=== PATIENT | female | born 1965 | race American Indian/Alaskan Native ===

== ENCOUNTER 2017-01-03 23:17 | Emergency (ER) | payer MEDICAID ==
[2017-01-03 23:17] VITALS: BMI 31.6
[2017-01-04] MEDS ORDERED: Sodium Chloride 0.9% 1,000 ML IV ONE (00:06)
[2017-01-04] MEDS ORDERED: Albuterol-Ipratrop 3 mg / 0.5 (3 ml) UD INH STA ×3 (00:07→01:37)
[2017-01-04] MEDS ORDERED: Sodium Chloride 0.9% 1,000 ML ONE (00:14)
[2017-01-04] MEDS ORDERED: Albuterol-Ipratrop 3 mg / 0.5 (3 ml) UD ONE ×3 (00:26→01:47)
[2017-01-04 00:50] LABS: BASO % 0.4 % (0.0-2.0); EOS # 0.2 K/uL (0.0-0.7); EOS % 3.8 % (0.0-4.0); HEMATOCRIT 41.9 % (34.0-47.0); LYMPH # 1.5 K/uL (1.0-4.3); LYMPH % 25.2 % (20.0-40.0); MEAN CELL VOLUME 82.6 fL (81.0-99.0); MEAN CORPUSCULAR HEMOGLOBIN 26.6 pg (27.0-31.0); MEAN CORPUSCULAR HGB CONC 32.2 g/dL (33.0-37.0); MEAN PLATELET VOLUME 8.9 fL (7.2-11.7); MONO # 0.5 K/uL (0.0-0.8); MONO % 8.8 % (0.0-10.0); NRBC % 0.1 % (0.0-2.0); RED CELL DISTRIBUTION WIDTH 15.6 % (11.5-14.5); WHITE BLOOD COUNT 6.1 K/uL (4.8-10.8)
[2017-01-04 01:02] LABS: POTASSIUM 4.3 mmol/L (3.6-5.2)
[2017-01-04 01:04] LABS: BILIRUBIN,TOTAL 0.9 mg/dL (0.2-1.3)
[2017-01-04 01:05] LABS: ALB/GLOB RATIO 1.2 (1.0-2.1)
[2017-01-04 01:06] LABS: CALCIUM 9.3 mg/dl (8.6-10.4)
[2017-01-04 01:16] LABS: TROPONIN I 0.013 ng/mL (0.00-0.120)
[2017-01-04 01:22] LABS: RBC URINE 2 /hpf (0-3); URINE BACTERIA RARE (<OCC); URINE BILIRUBIN NEGATIVE (NEGATIVE); URINE BLOOD NEGATIVE (NEGATIVE); URINE COLOR Yellow (YELLOW); URINE GLUCOSE (UA) NORMAL (Normal); URINE KETONE NEGATIVE (NEGATIVE); URINE LEUKOCYTE ESTERASE TRACE Leu/uL (Negative); URINE PROTEIN 1+ mg/dL (NEGATIVE); URINE UROBILINOGEN NORMAL mg/dL (0.2-1.0); WBC URINE 8 /hpf (0-5)
--- NOTE | 2017-01-04 01:25 | C.PDOC ---
History Of Present Illness 51 year old patient, with a past medical history of asthma, is brought in by ambulance to the ED complaining of dry, non-productive cough for the past 3 days. Patient denies fever, chest pain, vomiting, or any other complaints. Time Seen by Provider: 01/04/17 00:00 Chief Complaint (Nursing): Chest Pain History Per: Patient History/Exam Limitations: no limitations Onset/Duration Of Symptoms: Days (3) Current Symptoms Are (Timing): Still Present Context: Other Severity: Mild Pain Scale Rating Of: 3 Quality: "Pain" Alleviating Factors: None Recent travel outside of the [place]: No Past Medical History Reviewed: Historical Data, Nursing Documentation, Vital Signs Vital Signs: Last Vital Signs Temp 98.2 F 01/04/17 02:18 Pulse 84 01/04/17 02:18 Resp 12 01/04/17 02:18 BP 161/94 H 01/04/17 02:18 Pulse Ox 100 01/04/17 02:18 - Medical History PMH: Asthma, Cardia Arrhythmia, Gall Bladder Disease (GALLSTONES), HIV, HTN, Hypercholesterolemia Surgical History: Cholecystectomy Family History: States: Unknown Family Hx - Social History Hx Tobacco Use: Yes Hx Alcohol Use: Yes Hx Substance Use: Yes - Immunization History Hx Tetanus Toxoid Vaccination: No Hx Influenza Vaccination: Yes Hx Pneumococcal Vaccination: No Review Of Systems Except As Marked, All Systems Reviewed And Found Negative. Constitutional: Negative for: Fever Cardiovascular: Negative for: Chest Pain Respiratory: Positive for: Cough Gastrointestinal: Negative for: Vomiting Physical Exam - Physical Exam Appears: Non-toxic, Other (mild distress) Skin: Warm, Dry Head: Atraumatic, Normacephalic Eye(s): bilateral: Normal Inspection, PERRL, EOMI Ear(s): Bilateral: Normal Nose: Normal Throat: Normal, No Erythema, No Exudate Neck: Normal ROM, Supple Chest: Symmetrical Cardiovascular: Rhythm Regular Respiratory: No Accessory Muscle Use, No Rales, Rhonchi (scattered), Wheezing ( scattered) Gastrointestinal/Abdominal: Soft, No Tenderness, Other (obese) Back: Normal Inspection, No CVA Tenderness Extremity: Normal ROM Neurological/Psych: Oriented x3, Normal Speech, Normal Cognition ED Course And Treatment - Laboratory Results Result Diagrams: 01/04/17 00:47 01/04/17 00:47 Lab Interpretation: Normal ECG: Interpreted By Me ECG Rhythm: Sinus Rhythm ECG Interpretation: Normal Rate From EC (bpm) O2 Sat by Pulse Oximetry: 97 (RA) Pulse Ox Interpretation: Normal - Radiology CXR: Interpreted by Me CXR Interpretation: Yes: No Acute Disease Progress Note: Plan: EKG, Labs, chest x-ray, Duoneb, IV fluids, Prednisone Reevaluation Time: :24 Reassessment Condition: Improved Medical Decision Making Medical Decision Making: bronchitis, no pna Disposition Doctor Will See Patient In The: Office Counseled Patient/Family Regarding: Studies Performed, Diagnosis - Disposition Referrals: Sapna Arechiga MD [Medical Doctor] - Disposition: HOME/ ROUTINE Disposition Time: :24 Condition: GOOD Additional Instructions: take the meds as prescribed Add pepcid 20 mg @ night to prevent stomach irritation. Follow-up with your PMD as needed in 2-3 days. Prescriptions: Spacer, Inhalation [Aerochamber] 1 dev IH DAILY #1 dev Prednisone [Deltasone] 40 mg PO DAILY #8 tablet Albuterol HFA [Ventolin HFA 90 mcg/actuation (8 g)] 2 puff IH Q4H PRN #2 puff PRN Reason: Cough Instructions: Acute Bronchitis (ED) - Clinical Impression Clinical Impression: Bronchitis - Scribe Statement The provider has reviewed the documentation as recorded by the Scribe Antionette Coon Provider Attestation: All medical record entries made by the Scribe were at my direction and personally dictated by me. I have reviewed the chart and agree that the record accurately reflects my personal performance of the history, physical exam, medical decision making, and the department course for this patient. I have also personally directed, reviewed, and agree with the discharge instructions and disposition.
[2017-01-04 02:20] VITALS: BP 161/94; PULSE 84; RESP 12; TEMP 98.2
[2017-01-04 03:00] VITALS: O2SAT 97
--- NOTE | 2017-01-04 08:44 | RAD ---
HISTORY: cough, ? bronchitis vs pna COMPARISON: 10/03/2015 TECHNIQUE: Chest PA and lateral FINDINGS: LUNGS: No active pulmonary disease. PLEURA: No significant pleural effusion identified. No pneumothorax apparent. CARDIOVASCULAR: Normal. OSSEOUS STRUCTURES: No significant abnormalities. VISUALIZED UPPER ABDOMEN: Surgical clips in the upper abdomen. OTHER FINDINGS: None. IMPRESSION: No active disease.
--- NOTE | 2017-01-06 19:48 | CARD ---
APPROVED REPORT EKG Measurement Heart [id number] <Conclusion> Normal sinus rhythm Minimal voltage criteria for LVH, may be normal variant Nonspecific T wave abnormality Abnormal ECG
== END 2017-01-04 02:53 | disposition home or self-care (01) ==
LOC: C.ER 23:17
DX: J40 Bronchitis, not specified as acute or chronic (principal); Z87.891 Personal history of nicotine dependence
CPT/HCPCS: 71020; 80053; 80324; 80345; 80346; 80349; 80353; 80358; 80361; 81001; 83880; 83992; 84484; 85025; 96360; 99285; J7040

== ENCOUNTER 2017-03-19 02:44 | Emergency (ER) | payer MEDICAID ==
[2017-03-19 02:44] VITALS: BMI 31.6
[2017-03-19 03:00] VITALS: O2SAT 99
[2017-03-19] MEDS ORDERED: Albuterol-Ipratrop 3 mg / 0.5 (3 ml) UD ONE ×2 (03:09→04:40)
--- NOTE | 2017-03-19 03:17 | C.PDOC ---
Time Seen by Provider: 03/19/17 03:12 Chief Complaint (Nursing): Chest Pain Past Medical History Vital Signs: Last Vital Signs Temp 98.1 F 03/19/17 02:54 Pulse 84 03/19/17 02:54 Resp 18 03/19/17 03:03 BP 156/82 H 03/19/17 02:54 Pulse Ox 99 03/19/17 03:03 - Medical History PMH: Asthma, Cardia Arrhythmia, Gall Bladder Disease (GALLSTONES), HIV, HTN, Hypercholesterolemia Denies: Chronic Kidney Disease Surgical History: Cholecystectomy Family History: States: Unknown Family Hx - Social History Hx Tobacco Use: Yes Hx Alcohol Use: Yes Hx Substance Use: Yes - Immunization History Hx Tetanus Toxoid Vaccination: No Hx Influenza Vaccination: Yes Hx Pneumococcal Vaccination: No ED Course And Treatment ECG: Interpreted By Me, Viewed By Me ECG Rhythm: Sinus Rhythm (79), Nonspecific Changes O2 Sat by Pulse Oximetry: 99 Pulse Ox Interpretation: Normal
[2017-03-19] MEDS ORDERED: MethylPREDNISolone 40 mg Vial IVP STA (03:30)
--- NOTE | 2017-03-19 03:30 | C.PDOC ---
History Of Present Illness Patient presents to the ED with complaints of chest pain with cough and shortness of breath. Patient notes a history of asthma and feels congested/ Patient denies any fever, chills, nausea. or vomiting. Time Seen by Provider: 03/19/17 03:12 Chief Complaint (Nursing): Chest Pain History Per: Patient History/Exam Limitations: no limitations Onset/Duration Of Symptoms: Hrs Current Symptoms Are (Timing): Still Present Associated Symptoms: Cough, Chest Pain. denies: Fever, Hives, Itching Preciptating Factors: Ran Out Of Meds Severity: Moderate Pain Scale Rating Of: 4 Recent travel outside of the [place]: No Additional History Per: Family - Asthma History Medication Use: Daily Rescue Medications: See Home Medication List Control Medications: See Home Medication List Past Medical History Reviewed: Historical Data, Nursing Documentation, Vital Signs Vital Signs: Last Vital Signs Temp 98.1 F 03/19/17 02:54 Pulse 84 03/19/17 02:54 Resp 18 03/19/17 03:03 BP 156/82 H 03/19/17 02:54 Pulse Ox 99 03/19/17 03:36 - Medical History PMH: Asthma, Cardia Arrhythmia, Gall Bladder Disease (GALLSTONES), HIV, HTN, Hypercholesterolemia Surgical History: Cholecystectomy Family History: States: Unknown Family Hx - Social History Hx Tobacco Use: Yes Hx Alcohol Use: Yes Hx Substance Use: Yes - Immunization History Hx Tetanus Toxoid Vaccination: No Hx Influenza Vaccination: Yes Hx Pneumococcal Vaccination: No Review Of Systems Constitutional: Negative for: Fever, Chills, Sweats ENT: Negative for: Throat Pain Cardiovascular: Positive for: Chest Pain (with cough only). Negative for: Palpitations Respiratory: Positive for: Cough, Shortness of Breath Gastrointestinal: Negative for: Nausea, Vomiting, Abdominal Pain, Diarrhea Genitourinary: Negative for: Dysuria Musculoskeletal: Negative for: Back Pain Skin: Negative for: Rash, Lesions, Jaundice Neurological: Negative for: Weakness Psych: Negative for: Anxiety Physical Exam - Physical Exam Appears: Non-toxic, No Acute Distress Skin: Warm, Dry Head: Normacephalic Eye(s): bilateral: Normal Inspection Oral Mucosa: Moist Neck: Supple Chest: Symmetrical, No Deformity Cardiovascular: Rhythm Regular Respiratory: No Rales, No Rhonchi, No Stridor, Wheezing (scattered diffuse wheezing ) Gastrointestinal/Abdominal: Soft, No Tenderness, No Distention, No Guarding, No Rebound Back: Normal Inspection Extremity: Normal ROM, No Tenderness Extremity: Bilateral: Atraumatic Neurological/Psych: Oriented x3, Normal Speech, Normal Cognition, Other ( patient is speaking in complete sentences ) Gait: Steady ED Course And Treatment - Laboratory Results Result Diagrams: 03/19/17 04:09 03/19/17 04:09 O2 Sat by Pulse Oximetry: 99 (room air ) Pulse Ox Interpretation: Normal - Radiology CXR: Interpreted by Me, Viewed By Me CXR Interpretation: Yes: Other (unchanged from 01/04/17). No: Infiltrates, Fracture, Pnemothorax Reevaluation Time: 04:52 Reassessment Condition: Improved Critical Care Time - Critical Care Note Total Time (in mins): 30 Documented critical care: time excludes all time spent performing seperately billable procedures. Disposition Counseled Patient/Family Regarding: Studies Performed, Diagnosis, Need For Followup - Disposition Referrals: Elsa Flower APN [Non-Staff] - Disposition: HOME/ ROUTINE Disposition Time: 03:30 Condition: FAIR Prescriptions: Albuterol/Ipratropium [Duoneb 3 MG/3 Ml-0.5 MG/3 Ml 3 Ml] 1 ea IH QID PRN #50 neb PRN Reason: Wheezing Prednisone [Deltasone] 20 mg PO DAILY #5 tablet Instructions: Asthma (DC) - Clinical Impression Clinical Impression: Asthma exacerbation - Scribe Statement The provider has reviewed the documentation as recorded by the Scribe Suzy Cole All medical record entries made by the Scribe were at my direction and personally dictated by me. I have reviewed the chart and agree that the record accurately reflects my personal performance of the history, physical exam, medical decision making, and the department course for this patient. I have also personally directed, reviewed, and agree with the discharge instructions and disposition.
[2017-03-19 04:12] LABS: BASO % 0.6 % (0.0-2.0); EOS # 0.6 K/uL (0.0-0.7); EOS % 8.8 % (0.0-4.0); HEMATOCRIT 40.9 % (34.0-47.0); LYMPH # 2.2 K/uL (1.0-4.3); LYMPH % 34.9 % (20.0-40.0); MEAN CELL VOLUME 81.9 fL (81.0-99.0); MEAN CORPUSCULAR HGB CONC 31.7 g/dL (33.0-37.0); MEAN PLATELET VOLUME 8.5 fL (7.2-11.7); MONO # 0.6 K/uL (0.0-0.8); MONO % 8.9 % (0.0-10.0); RED CELL DISTRIBUTION WIDTH 14.1 % (11.5-14.5); WHITE BLOOD COUNT 6.4 K/uL (4.8-10.8)
[2017-03-19 04:25] LABS: POTASSIUM 4.2 mmol/L (3.6-5.2)
[2017-03-19 04:28] LABS: ALB/GLOB RATIO 1.5 (1.0-2.1); BILIRUBIN,TOTAL 0.7 mg/dL (0.2-1.3); TOTAL PROTEIN 7.7 g/dL (6.3-8.3)
[2017-03-19] MEDS: Albuterol-Ipratrop 3 mg / 0.5 (3 ml) UD IH SCH ×2 (04:45→04:46)
[2017-03-19 05:07] VITALS: BP 149/81; PULSE 92; RESP 16; TEMP 98.7
--- NOTE | 2017-03-19 08:40 | RAD ---
PROCEDURE: CHEST RADIOGRAPH, 1 VIEW HISTORY: SOB COMPARISON: 01/04/2017 FINDINGS: LUNGS: Clear. PLEURA: No pneumothorax or pleural fluid seen. CARDIOVASCULAR: Normal. OSSEOUS STRUCTURES: No significant abnormalities. VISUALIZED UPPER ABDOMEN: Normal. OTHER FINDINGS: None. IMPRESSION: No active disease.
== END 2017-03-19 05:19 | disposition home or self-care (01) ==
LOC: C.ER 02:44
DX: J45.901 Unspecified asthma with (acute) exacerbation (principal); Z72.0 Tobacco use
CPT/HCPCS: 71010; 80053; 85025; 94150; 96374; 99285; J2920

== ENCOUNTER 2017-05-27 11:35 | Emergency (ER) | payer MEDICAID ==
[2017-05-27 11:35] VITALS: BMI 31.6
[2017-05-27 11:51] VITALS: RESP 16; O2SAT 100
--- NOTE | 2017-05-27 11:56 | C.PDOC ---
History Of Present Illness 51 y/o F c PMHx asthma p/w chest pain x 2 hours. Patient states that she sniffed heroin prior to the symptoms. She also reports cocaine use last night. She reports associated palpitations. She denies dyspnea, nausea, vomiting. Time Seen by Provider: 05/27/17 11:40 Chief Complaint (Nursing): Chest Pain Past Medical History Vital Signs: Last Vital Signs Temp 98.2 F 05/27/17 13:01 Pulse 88 05/27/17 13:01 Resp 16 05/27/17 13:01 BP 168/92 H 05/27/17 13:01 Pulse Ox 100 05/27/17 13:01 - Medical History PMH: Asthma, Cardia Arrhythmia, Gall Bladder Disease (GALLSTONES), HIV, HTN, Hypercholesterolemia Denies: Chronic Kidney Disease Surgical History: Cholecystectomy Family History: States: Unknown Family Hx - Social History Hx Tobacco Use: Yes Hx Alcohol Use: Yes Hx Substance Use: Yes - Immunization History Hx Tetanus Toxoid Vaccination: No Hx Influenza Vaccination: Yes Hx Pneumococcal Vaccination: No Review Of Systems Except As Marked, All Systems Reviewed And Found Negative. Constitutional: Negative for: Fever Respiratory: Negative for: Shortness of Breath Physical Exam - Physical Exam Additional Physical Exam Comments: Constitutional: No acute distress. Head: Normocephalic. Atraumatic. Eyes: PERRL. ENT: Moist mucous membranes. Neck: Supple. Cardiovascular: Regular rate. Radial pulse 2+ bilaterally. Chest: No tenderness. Respiratory: Clear to auscultation bilaterally. GI: Soft. Back: No CVA tenderness. Musculoskeletal: No tenderness or swelling of extremities. Skin: No rash. Neurologic: Alert, no focal deficit. ED Course And Treatment - Laboratory Results Result Diagrams: 05/27/17 12:18 05/27/17 12:18 O2 Sat by Pulse Oximetry: 100 Medical Decision Making Medical Decision Making: EKG NSR 80 bpm, no ST/T wave changes. Will check 1 set of cardiac enzymes due to cocaine use last night. Aspirin administered en route. Otherwise, patient in no acute distress, normal HR. Patient in no distress during ER stay. Will discharge home, counseled on illicit drug use. Disposition - Disposition Disposition: HOME/ ROUTINE Disposition Time: 12:55 Condition: STABLE Instructions: Polysubstance Abuse (ED) Forms: [email or web address] (Mongolian) - Clinical Impression Clinical Impression: Chest pain
[2017-05-27 12:24] LABS: BASO % 0.6 % (0.0-2.0); EOS # 0.1 K/uL (0.0-0.7); EOS % 0.9 % (0.0-4.0); HEMATOCRIT 43.8 % (34.0-47.0); LYMPH % 14.2 % (20.0-40.0); MEAN CELL VOLUME 81.9 fL (81.0-99.0); MEAN CORPUSCULAR HEMOGLOBIN 26.4 pg (27.0-31.0); MEAN CORPUSCULAR HGB CONC 32.2 g/dL (33.0-37.0); MEAN PLATELET VOLUME 8.7 fL (7.2-11.7); MONO # 0.5 K/uL (0.0-0.8); MONO % 6.7 % (0.0-10.0); NRBC % 0.2 % (0.0-2.0); WHITE BLOOD COUNT 6.8 K/uL (4.8-10.8)
[2017-05-27 12:31] LABS: CHLORIDE 99 mmol/L (98-107); POTASSIUM 3.5 mmol/L (3.6-5.2); SODIUM 142 mmol/L (132-148)
[2017-05-27 12:33] LABS: GFR AFRICAN-AMERICAN 41
[2017-05-27 12:34] LABS: ALB/GLOB RATIO 1.1 (1.0-2.1); ALKALINE PHOSPHATASE 105 U/L (38-126); AST/SGOT 28 U/L (14-36); BLOOD UREA NITROGEN 14 mg/dL (7-17); CARBON DIOXIDE 25 mmol/L (22-30); TOTAL PROTEIN 8.3 g/dL (6.3-8.3)
[2017-05-27 12:35] LABS: ALT/SGPT 26 U/L (9-52); CALCIUM 9.9 mg/dl (8.6-10.4); GLUCOSE,RANDOM 90 mg/dL (65-105)
--- NOTE | 2017-05-27 12:36 | RAD ---
HISTORY: cp COMPARISON: Chest x-ray performed 03/19/17 TECHNIQUE: Chest, one view. FINDINGS: Examination limited by habitus. LUNGS: No focal consolidation. Please note that chest x-ray has limited sensitivity for the detection of pulmonary masses. PLEURA: No significant pleural effusion identified. No definite pneumothorax . CARDIOVASCULAR: The cardiomediastinal silhouette appears within normal limits of size. OSSEOUS STRUCTURES: No acute osseous abnormality identified. VISUALIZED UPPER ABDOMEN: Unremarkable. OTHER FINDINGS: None. IMPRESSION: No focal consolidation, significant pleural effusion, or definite pneumothorax identified.
[2017-05-27 13:01] VITALS: BP 168/92; PULSE 88; TEMP 98.2
--- NOTE | 2017-05-30 23:59 | CARD ---
APPROVED REPORT EKG Measurement Heart [id number] <Conclusion> Normal sinus rhythm Minimal voltage criteria for LVH, may be normal variant Borderline ECG
== END 2017-05-27 13:08 | disposition home or self-care (01) ==
LOC: C.ER 11:35
DX: R07.9 Chest pain, unspecified (principal); F14.10 Cocaine abuse, uncomplicated

== ENCOUNTER 2018-07-04 09:50 | Inpatient (IN) | payer MEDICAID ==
[2018-07-04] MEDS ORDERED: Aspirin 325 mg EC Tablets PO STA (10:14)
[2018-07-04] MEDS ORDERED: Nitroglycerin 50mg in D5W 50 MG/250 ML BOTTLE IV SCH (10:15)
[2018-07-04] MEDS ORDERED: Nitroglycerin 50mg in D5W 50 MG/250 ML BOTTLE IV ONE (10:24)
[2018-07-04 10:29] LABS: BASO % 0.3 % (0.0-2.0); EOS % 0.7 % (0.0-4.0); HEMOGLOBIN 11.8 g/dL (11.0-16.0); LYMPH # 1.5 K/uL (1.0-4.3); LYMPH % 28.6 % (20.0-40.0); MEAN CORPUSCULAR HEMOGLOBIN 24.7 pg (27.0-31.0); MEAN CORPUSCULAR HGB CONC 32.8 g/dL (33.0-37.0); MEAN PLATELET VOLUME 7.9 fL (7.2-11.7); MONO # 0.4 K/uL (0.0-0.8); MONO % 7.2 % (0.0-10.0); NEUT # 3.4 K/uL (1.8-7.0); NEUT % 63.2 % (50.0-75.0); NRBC % 0.1 % (0.0-2.0); RBC 4.79 Mil/uL (3.80-5.20); RED CELL DISTRIBUTION WIDTH 16.1 % (11.5-14.5); WHITE BLOOD COUNT 5.3 K/uL (4.8-10.8)
[2018-07-04 10:30] LABS: MEAN CELL VOLUME 75.4 fL (81.0-99.0)
[2018-07-04 10:36] LABS: INR 1.1; PROTHROMBIN TIME 11.5 SECONDS (9.7-12.2)
[2018-07-04 10:42] LABS: ALB/GLOB RATIO 0.8 (1.0-2.1); ALBUMIN 4.5 g/dL (3.5-5.0); CALCIUM 10.6 mg/dl (8.6-10.4)
[2018-07-04 10:52] LABS: TROPONIN I 0.088 ng/mL (0.00-0.120)
--- NOTE | 2018-07-04 11:20 | RAD ---
Date of service: 07/04/2018 PROCEDURE: CHEST RADIOGRAPH, 1 VIEW HISTORY: SOB COMPARISON: 05/27/2017 FINDINGS: LUNGS: Clear. PLEURA: No pneumothorax or pleural fluid seen. CARDIOVASCULAR: No radiographic findings to suggest acute or significant cardiovascular disease. OSSEOUS STRUCTURES: No significant abnormalities. VISUALIZED UPPER ABDOMEN: Normal. OTHER FINDINGS: None. IMPRESSION: No active disease. No acute/significant interval changes.
[2018-07-04] MEDS ORDERED: Albuterol HFA 90 mcg/actuation (8 g) IH PRN (12:00)
[2018-07-04] MEDS ORDERED: Albuterol-Ipratrop 3 mg / 0.5 (3 ml) UD IH PRN (12:53)
--- NOTE | 2018-07-04 16:01 | C.PDOC ---
History Of Present Illness 53 y/o female,w/PMhx of HTN, brought to ER by ALS for evaluation chest pain which began after she was snorting cocaine today. EMS was phoned and patient was transported to the ER. Upon arrival, patient is complaining of chest pain. Dianne hathaway describes the pain as tightness. She notes that she has associated SOB. Time Seen by Provider: 07/04/18 10:03 Chief Complaint (Nursing): Chest Pain History Per: Patient History/Exam Limitations: no limitations Onset/Duration Of Symptoms: Hrs Current Symptoms Are (Timing): Still Present Severity: Moderate Past Medical History Reviewed: Historical Data, Nursing Documentation, Vital Signs Vital Signs: Last Vital Signs Temp 98.2 F 07/04/18 16:05 Pulse 76 07/04/18 16:05 Resp 20 07/04/18 16:05 BP 149/70 07/04/18 16:05 Pulse Ox 98 07/04/18 16:14 - Medical History PMH: Asthma, Cardia Arrhythmia, Gall Bladder Disease (GALLSTONES), HIV, HTN, Hypercholesterolemia Denies: Chronic Kidney Disease Surgical History: Cholecystectomy Family History: States: No Known Family Hx - Social History Hx Tobacco Use: Yes Hx Alcohol Use: Yes Hx Substance Use: Yes - Immunization History Hx Tetanus Toxoid Vaccination: No Hx Influenza Vaccination: Yes Hx Pneumococcal Vaccination: No Review Of Systems Except As Marked, All Systems Reviewed And Found Negative. Constitutional: Negative for: Fever, Chills Cardiovascular: Positive for: Chest Pain Respiratory: Positive for: Shortness of Breath. Negative for: Cough Physical Exam - Physical Exam Appears: Non-toxic, No Acute Distress Skin: Normal Color, Warm, Dry Head: Atraumatic, Normacephalic Eye(s): bilateral: Normal Inspection Nose: Normal Oral Mucosa: Moist Neck: Supple Chest: Symmetrical Cardiovascular: Rhythm Regular Respiratory: Normal Breath Sounds, No Rales, No Rhonchi, No Wheezing Gastrointestinal/Abdominal: Normal Exam, Soft, No Tenderness, No Guarding, No Rebound Neurological/Psych: Oriented x3, Normal Speech ED Course And Treatment - Laboratory Results Result Diagrams: 07/04/18 10:21 07/04/18 10:21 ECG: Interpreted By Me, Viewed By Me ECG Rhythm: Sinus Tachycardia Interpretation Of ECG: Sinus Tachycardia with normal intervals, normal axises, poor R wave progression, ST elevations in Leads V2-V6, T wave inversions in Lead III Rate From EC O2 Sat by Pulse Oximetry: 98 (RA) Pulse Ox Interpretation: Normal - Other Rad CXR X-Ray: Viewed By Me, Read By Radiologist Interpretation: Date of service: 07/04/2018. PROCEDURE: CHEST RADIOGRAPH, 1 VIEW. HISTORY: SOB. COMPARISON: 05/27/2017. FINDINGS: LUNGS: Clear. PLEURA: No pneumothorax or pleural fluid seen. CARDIOVASCULAR: No radiographic findings to suggest acute or significant cardiovascular disease. OSSEOUS STRUCTURES: No significant abnormalities. VISUALIZED UPPER ABDOMEN: N ormal. OTHER FINDINGS: None. IMPRESSION: No active disease. No acute/significant interval changes. Medical Decision Making Medical Decision Making: Assessment: Chest Pain Plan: --Labs --CXR --Aspirin PO Updates: 10:13 AM Case discussed with Dr. Ramirez, unit leader. I sent a copy to Dr. Ramirez, he noted it is not a STEMI, it is vasospasm. There will be no code heart. CXR was compared to CXR on 05/27/17. There are no changes. 11: 27 AM Patient admitted to Tele Obs under for chest pain. Disposition Discussed With : Andreas Ignacio Doctor Will See Patient In The: Hospital Counseled Patient/Family Regarding: Studies Performed, Diagnosis - Disposition Disposition: HOSPITALIZED Disposition Time: 11:27 Condition: FAIR - Clinical Impression Clinical Impression: Chest pain - Scribe Statement The provider has reviewed the documentation as recorded by the Mika Carlisle Provider Attestation: All medical record entries made by the Daveibe were at my direction and personally dictated by me. I have reviewed the chart and agree that the record accurately reflects my personal performance of the history, physical exam, medical decision making, and the department course for this patient. I have also personally directed, reviewed, and agree with the discharge instructions and disposition.
[2018-07-04 16:06] VITALS: RESP 20
[2018-07-04 18:01] LABS: CK-MB 8.72 ng/mL (0.0-3.38); TROPONIN I 2.66 ng/mL (0.00-0.120)
[2018-07-04 23:15] LABS: CK-MB 13.1 ng/mL (0.0-3.38); TROPONIN I 5.9 ng/mL (0.00-0.120)
[2018-07-04] MEDS ORDERED: Heparin25000 units/250ml 1/2NS 25,000 UNITS/250 ML BAG IV PRN (23:48)
[2018-07-05 05:09] LABS: CK-MB 12.9 ng/mL (0.0-3.38); TROPONIN I 6.82 ng/mL (0.00-0.120)
[2018-07-05] MEDS ORDERED: Fluticasone Nasal 50 mcg/Spray NS SCH (08:00)
[2018-07-05] MEDS ORDERED: RILPIVIRINE HCL 25 MG PO SCH (10:00)
[2018-07-05] MEDS ORDERED: Lidocaine PF 2% (5 ml) Inj (For Cardiac Arrhy) ONE (11:18)
[2018-07-05] MEDS ORDERED: Midazolam 2 MG/2 ML VIAL ONE ×3 (11:21→11:45)
[2018-07-05] MEDS ORDERED: Verapamil 2 ML ONE (11:25)
[2018-07-05] MEDS ORDERED: Nitroglycerin 50mg in D5W 50 MG/250 ML BOTTLE IV ONE (11:28)
[2018-07-05] MEDS ORDERED: Iodixanol 320 MG/ML 200 ML BOTTLE IV ONE (11:29)
[2018-07-05] MEDS ORDERED: Iodixanol 320 MG/ML 100 ML BOTTLE IV ONE (11:41)
--- NOTE | 2018-07-05 11:48 | CARD ---
APPROVED REPORT Date of service: 07/04/2018 EKG Measurement Heart [id number] <Conclusion> Normal sinus rhythm Possible Left atrial enlargement Left ventricular hypertrophy Abnormal ECG
[2018-07-05] MEDS ORDERED: DiphenhydrAMINE 50 mg/ml Inj ONE (11:49)
--- NOTE | 2018-07-05 11:56 | CARD ---
APPROVED REPORT Date of service: 07/04/2018 EKG Measurement Heart [id number] [id number] <Conclusion> Sinus tachycardia Voltage criteria for left ventricular hypertrophy Cannot rule out Septal infarct, age undetermined Abnormal ECG
--- NOTE | 2018-07-05 16:38 | CP.PCM.CON ---
<Morenita Ryan - Last Filed: 07/05/18 16:32> History of Present Illness - History of Present Illness History of Present Illness: Cardiology Consult Note Morenita Ryan, PGY1 note for Dr. Ramirez This is a 53 year old female with PMH of HTN and HIV presenting to the hospital after developing chest pain from use of cocaine. Patient states she snorted cocaine and subsequently developed sharp left sided chest pain. Initial EKG showed sinus rhythm at 91bpm with ST elevations in leads V4-6 significant for lateral ischemia vs vasospasm. Troponins were 2.6, 5.9 and 6.8. Patient started on heparin drip and plavix 75mg. At this time, she continues to admit to intermittent chest pain at rest that is rated at 3-4/10, non radiating and no other associated symptoms. She denies SOB, fevers, headaches, nausea, vomiting, abdominal pain, back pain, urinary complaints, swelling, numbness and tingling. 12 point ROS noted here, otherwise unremarkable. Past Patient History - Infectious Disease Hx of Infectious Diseases: None - Past Medical History & Family History Past Medical History?: Yes - Past Social History Smoking Status: Light Smoker < 10 Cigarettes Daily - CARDIAC Hx Cardia Arrhythmia: Yes Hx Hypercholesterolemia: Yes Hx Hypertension: Yes - PULMONARY Hx Asthma: Yes - NEUROLOGICAL Hx Neurological Disorder: No - HEENT Hx HEENT Problems: No - RENAL Hx Chronic Kidney Disease: No - ENDOCRINE/METABOLIC Hx Endocrine Disorders: No - HEMATOLOGICAL/ONCOLOGICAL Hx Human Immunodeficiency Virus (HIV): Yes - INTEGUMENTARY Hx Dermatological Problems: No - MUSCULOSKELETAL/RHEUMATOLOGICAL Hx Musculoskeletal Disorders: No Hx Falls: No - GASTROINTESTINAL Hx Gall Bladder Disease: Yes (GALLSTONES) - PSYCHIATRIC Hx Substance Use: Yes - SURGICAL HISTORY Hx Cholecystectomy: Yes - ANESTHESIA Hx Anesthesia: Yes Hx Anesthesia Reactions: No Hx Malignant Hyperthermia: No Meds Allergies/Adverse Reactions: Allergies Allergy/AdvReac Type Severity Reaction Status Date / Time codeine Allergy Verified 05/27/17 11:48 - Medications Medications: Current Medications Albuterol (Ventolin Hfa 90 Mcg/Actuation (8 G)) 2 puff IH RQ4 PRN PRN Reason: Cough Albuterol/Ipratropium (Duoneb 3 Mg/0.5 Mg (3 Ml) Ud) 3 ml IH RQID PRN PRN Reason: Wheezing Amlodipine Besylate (Norvasc) 5 mg PO DAILY [facility] Last Admin: 07/05/18 09:16 Dose: 5 mg Aspirin (Ecotrin) 81 mg PO DAILY [facility] Last Admin: 07/05/18 09:16 Dose: 81 mg Clopidogrel Bisulfate (Plavix) 75 mg PO DAILY [facility] Last Admin: 07/05/18 09:57 Dose: Not Given Dolutegravir Sodium (Tivicay) 50 mg PO DAILY [facility] Last Admin: 07/05/18 10:00 Dose: Not Given Fluticasone Propionate (Flonase) 1 spr NS RQD [facility] Last Admin: 07/05/18 09:00 Dose: Not Given Home Med (Rilpivirine Hcl [Edurant]) 25 mg PO DAILY [facility] Heparin Sodium/Sodium Chloride (Heparin 45696 Units/250ml 1/2 Normal Saline) 25,000 units in 250 mls @ 9.634 mls/hr IV .Q24H PRN; Protocol PRN Reason: ADJUST RATE PER PROTOCOL Last Admin: 07/05/18 00:49 Dose: 12 units/kg/hr, 9.634 mls/hr Physical Exam - Constitutional Appears: No Acute Distress - Head Exam Head Exam: ATRAUMATIC, NORMAL INSPECTION - Eye Exam Eye Exam: EOMI Pupil Exam: PERRL - ENT Exam ENT Exam: Mucous Membranes Moist - Respiratory Exam Respiratory Exam: Clear to Auscultation Bilateral. absent: Respiratory Distress - Cardiovascular Exam Cardiovascular Exam: REGULAR RHYTHM, +S1, +S2. absent: Tachycardia - GI/Abdominal Exam GI & Abdominal Exam: Normal Bowel Sounds. absent: Firm, Guarding - Extremities Exam Extremities exam: Positive for: normal inspection. Negative for: calf tenderness - Neurological Exam Neurological exam: Alert, Oriented x3 - Skin Skin Exam: Normal Color, Warm Results - Vital Signs Recent Vital Signs: Last Vital Signs Temp 97.8 F 07/05/18 15:00 Pulse 69 07/05/18 15:00 Resp 20 07/05/18 15:00 BP 121/69 07/05/18 15:00 Pulse Ox 98 07/05/18 15:00 - Labs Result Diagrams: 07/04/18 10:21 07/04/18 10:21 Labs: Laboratory Results - last 24 hr 07/04/18 07/04/18 07/05/18 17:16 22:38 04:22 APTT Total Creatine Kinase 199 H 276 H 274 H CK-MB (Mass) 8.72 H 13.1 H 12.9 H Troponin I 2.6600 H* 5.9000 H* 6.8200 H* 07/05/18 07:43 APTT 49 H D Total Creatine Kinase CK-MB (Mass) Troponin I Assessment & Plan - Assessment and Plan (Free Text) Assessment: This is a 53 year old female with PMH of HTN and HIV presenting to the hospital after developing chest pain from use of cocaine. Plan: Chest pain -s/p cocaine use -coronary vasospasm vs. myocardial ishcemia -received diagnostic cath today showing stenosis of LAD -plan for therapeutic cath tomorrow at [facility] -continue norvasc, ASA, plavix Further recommendations per Dr. Ramirez <Morris Ramirez - Last Filed: 07/06/18 17:29> Meds - Medications Medications: Current Medications Acetylcysteine (Acetylcysteine 20%) 3 ml PO Q12H [facility] Stop: 07/08/18 01:01 Last Admin: 07/06/18 12:46 Dose: 3 ml Albuterol (Ventolin Hfa 90 Mcg/Actuation (8 G)) 2 puff IH RQ4 PRN PRN Reason: Cough Albuterol/Ipratropium (Duoneb 3 Mg/0.5 Mg (3 Ml) Ud) 3 ml IH RQID PRN PRN Reason: Wheezing Amlodipine Besylate (Norvasc) 5 mg PO DAILY [facility] Last Admin: 07/06/18 09:36 Dose: 5 mg Aspirin (Ecotrin) 81 mg PO DAILY [facility] Last Admin: 07/06/18 09:36 Dose: 81 mg Clopidogrel Bisulfate (Plavix) 75 mg PO DAILY [facility] Last Admin: 07/06/18 09:36 Dose: 75 mg Dolutegravir Sodium (Tivicay) 50 mg PO DAILY [facility] Last Admin: 07/06/18 09:36 Dose: Not Given Enoxaparin Sodium (Lovenox) 80 mg SC Q12H [facility] Last Admin: 07/06/18 06:46 Dose: 80 mg Fluticasone Propionate (Flonase) 1 spr NS RQD [facility] Last Admin: 07/05/18 09:00 Dose: Not Given Home Med (Rilpivirine Hcl [Edurant]) 25 mg PO DAILY [facility] Sodium Chloride (Sodium Chloride 0.9%) 1,000 mls @ 60 mls/hr IV .[id number] [facility] Last Admin: 07/06/18 11:40 Dose: 60 mls/hr Sodium Chloride (Sodium Chloride 0.9%) 1,000 mls @ 100 mls/hr IV .Q10H [facility] Stop: 07/07/18 11:31 Last Admin: 07/06/18 11:46 Dose: 100 mls/hr Results - Vital Signs Recent Vital Signs: Last Vital Signs Temp 98.9 F 07/06/18 08:26 Pulse 78 07/06/18 08:26 Resp 20 07/06/18 08:26 BP 164/97 H 07/06/18 08:26 Pulse Ox 95 07/06/18 08:26 - Labs Result Diagrams: 07/04/18 10:21 07/06/18 06:52 Labs: Laboratory Results - last 24 hr 07/06/18 07/06/18 07/06/18 04:32 04:32 06:52 Sodium 138 Potassium 5.2 Chloride 105 Carbon Dioxide 25 Anion Gap 13 BUN 24 H Creatinine 2.1 H Est GFR ( Amer) 30 Est GFR (Non-Af Amer) 25 Random Glucose 90 Calcium 9.6 Urine Color Straw Urine Clarity Clear Urine pH 7.0 Ur Specific [place] 1.015 Urine Protein Negative Urine Glucose (UA) 1+ Urine Ketones Negative Urine Blood Negative Urine Nitrate Negative Urine Bilirubin Negative Urine Urobilinogen Normal Ur Leukocyte Esterase Neg Urine WBC (Auto) 2 Urine RBC (Auto) < 1 Ur Squamous Epith Cells 2 Urine Opiates Screen Positive H Urine Methadone Screen Negative Ur Barbiturates Screen Negative Ur Phencyclidine Scrn Negative Ur Amphetamines Screen Negative U Benzodiazepines Scrn Positive U Oth Cocaine Metabols Positive H U Cannabinoids Screen Negative Complement C3 Complement C4 Hepatitis A IgM Ab Hep Bs Antigen Hep B Core IgM Ab Hepatitis C Antibody 07/06/18 07/06/18 06:52 06:57 Sodium Potassium Chloride Carbon Dioxide Anion Gap BUN Creatinine Est GFR ( Amer) Est GFR (Non-Af Amer) Random Glucose Calcium Urine Color Urine Clarity Urine pH Ur Specific [place] Urine Protein Urine Glucose (UA) Urine Ketones Urine Blood Urine Nitrate Urine Bilirubin Urine Urobilinogen Ur Leukocyte Esterase Urine WBC (Auto) Urine RBC (Auto) Ur Squamous Epith Cells Urine Opiates Screen Urine Methadone Screen Ur Barbiturates Screen Ur Phencyclidine Scrn Ur Amphetamines Screen U Benzodiazepines Scrn U Oth Cocaine Metabols U Cannabinoids Screen Complement C3 106.0 Complement C4 32.5 Hepatitis A IgM Ab Negative Hep Bs Antigen Negative Hep B Core IgM Ab Negative Hepatitis C Antibody Negative Attending/Attestation - Attestation I have personally seen and examined this patient.: Yes I have fully participated in the care of the patient.: Yes I have reviewed all pertinent clinical information: Yes
--- NOTE | 2018-07-05 18:36 | US ---
Date of service: 07/05/2018 PROCEDURE: Ultrasound of the Kidneys HISTORY: ckd COMPARISON: None available. TECHNIQUE: Sonogram of the kidneys. FINDINGS: RIGHT KIDNEY: Measures: 10.0 x 4.2 x 4.7 cm. Lower pole cyst measuring 0.7 x 0.7 x 0.9 cm. Normal in size, contour and echogenicity. No stone, solid mass lesion or hydronephrosis visualized. LEFT KIDNEY: Measures: 9.8 x 4.6 x 4.5 cm. Nonspecific echogenic area in the midpole cortex measuring 1.6 x 0.7 x 1.1 cm. Normal in size, contour and echogenicity. No stone, solid mass lesion or hydronephrosis visualized. OTHER FINDINGS: None. IMPRESSION: 1.6 cm echogenic area in the left lateral midpole cortex with increased through transmission. 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 Cross-sectional imaging can be obtained for further characterization on a nonemergent basis. Right lower pole cyst.
[2018-07-05] MEDS: Sodium Chloride 0.9% 1,000 ML IV SCH (18:58)
[2018-07-05] MEDS: Enoxaparin 80 mg Syringe SC SCH (19:07)
--- NOTE | 2018-07-05 22:36 | CP.PCM.HP ---
Past Patient History - Infectious Disease Hx of Infectious Diseases: None - Past Medical History & Family History Past Medical History?: Yes - Past Social History Smoking Status: Light Smoker < 10 Cigarettes Daily - CARDIAC Hx Cardia Arrhythmia: Yes Hx Hypercholesterolemia: Yes Hx Hypertension: Yes - PULMONARY Hx Asthma: Yes - NEUROLOGICAL Hx Neurological Disorder: No - HEENT Hx HEENT Problems: No - RENAL Hx Chronic Kidney Disease: No - ENDOCRINE/METABOLIC Hx Endocrine Disorders: No - HEMATOLOGICAL/ONCOLOGICAL Hx Human Immunodeficiency Virus (HIV): Yes - INTEGUMENTARY Hx Dermatological Problems: No - MUSCULOSKELETAL/RHEUMATOLOGICAL Hx Musculoskeletal Disorders: No Hx Falls: No - GASTROINTESTINAL Hx Gall Bladder Disease: Yes (GALLSTONES) - PSYCHIATRIC Hx Substance Use: Yes - SURGICAL HISTORY Hx Cholecystectomy: Yes - ANESTHESIA Hx Anesthesia: Yes Hx Anesthesia Reactions: No Hx Malignant Hyperthermia: No Meds Allergies/Adverse Reactions: Allergies Allergy/AdvReac Type Severity Reaction Status Date / Time codeine Allergy Verified 05/27/17 11:48 Results - Vital Signs Recent Vital Signs: Last Vital Signs Temp 99.0 F 07/05/18 15:10 Pulse 88 07/05/18 15:10 Resp 20 07/05/18 15:10 BP 155/77 H 07/05/18 15:10 Pulse Ox 98 07/05/18 15:10 - Labs Result Diagrams: 07/04/18 10:21 07/04/18 10:21 Labs: Laboratory Results - last 24 hr 07/04/18 07/05/18 07/05/18 22:38 04:22 07:43 APTT 49 H D Total Creatine Kinase 276 H 274 H CK-MB (Mass) 13.1 H 12.9 H Troponin I 5.9000 H* 6.8200 H*
[2018-07-06 04:42] LABS: SQUAMOUS EPITHIAL 2 /hpf (0-5); URINE BILIRUBIN NEGATIVE (NEGATIVE); URINE BLOOD NEGATIVE (NEGATIVE); URINE CLARITY Clear (Clear); URINE COLOR Straw (YELLOW); URINE GLUCOSE (UA) 1+ mg/dL (Normal); URINE LEUKOCYTE ESTERASE NEG Leu/uL (Negative); URINE PROTEIN NEGATIVE (NEGATIVE); URINE UROBILINOGEN NORMAL mg/dL (0.2-1.0)
[2018-07-06 04:54] LABS: BARBITURATES, UR NEGATIVE (NEGATIVE); PHENCYCLIDINE, UR NEGATIVE (NEGATIVE)
[2018-07-06 04:59] LABS: BENZODIAZEPINES, UR POSITIVE (NEGATIVE); OPIATES, UR POSITIVE (NEGATIVE)
[2018-07-06] MEDS: Enoxaparin 80 mg Syringe SC SCH (06:46)
[2018-07-06 07:29] LABS: CALCIUM 9.6 mg/dl (8.6-10.4)
[2018-07-06 07:54] LABS: HEPATITIS B SURFACE AG Negative (NEGATIVE)
[2018-07-06 08:00] LABS: COMPLEMENT C4 32.5 mg/dL (14.0-44.0)
[2018-07-06 08:01] LABS: HEPATITIS A IGM NEGATIVE (NEGATIVE); HEPATITIS B CORE AB NEGATIVE (NEGATIVE)
[2018-07-06 08:13] LABS: HEPATITIS C ANTIBODY NEGATIVE (NEGATIVE)
--- NOTE | 2018-07-06 11:31 | CP.PCM.CON ---
History of Present Illness - History of Present Illness History of Present Illness: pt is seen and examined, full consult is dictated #[id number] 1. CKD-3 2. HTN 3. HIV+ 4. NSTEMI pt will have mild risk for MICHAEL will c/w ivf ns at 100 ml/hr mucomyst 600 mg po bid, first dose now Past Patient History - Infectious Disease Hx of Infectious Diseases: None - Past Medical History & Family History Past Medical History?: Yes - Past Social History Smoking Status: Light Smoker < 10 Cigarettes Daily - CARDIAC Hx Cardia Arrhythmia: Yes Hx Hypercholesterolemia: Yes Hx Hypertension: Yes - PULMONARY Hx Asthma: Yes - NEUROLOGICAL Hx Neurological Disorder: No - HEENT Hx HEENT Problems: No - RENAL Hx Chronic Kidney Disease: No - ENDOCRINE/METABOLIC Hx Endocrine Disorders: No - HEMATOLOGICAL/ONCOLOGICAL Hx Human Immunodeficiency Virus (HIV): Yes - INTEGUMENTARY Hx Dermatological Problems: No - MUSCULOSKELETAL/RHEUMATOLOGICAL Hx Musculoskeletal Disorders: No Hx Falls: No - GASTROINTESTINAL Hx Gall Bladder Disease: Yes (GALLSTONES) - PSYCHIATRIC Hx Substance Use: Yes - SURGICAL HISTORY Hx Cholecystectomy: Yes - ANESTHESIA Hx Anesthesia: Yes Hx Anesthesia Reactions: No Hx Malignant Hyperthermia: No Meds Allergies/Adverse Reactions: Allergies Allergy/AdvReac Type Severity Reaction Status Date / Time codeine Allergy Verified 05/27/17 11:48 - Medications Medications: Current Medications Albuterol (Ventolin Hfa 90 Mcg/Actuation (8 G)) 2 puff IH RQ4 PRN PRN Reason: Cough Albuterol/Ipratropium (Duoneb 3 Mg/0.5 Mg (3 Ml) Ud) 3 ml IH RQID PRN PRN Reason: Wheezing Amlodipine Besylate (Norvasc) 5 mg PO DAILY [facility] Last Admin: 07/06/18 09:36 Dose: 5 mg Aspirin (Ecotrin) 81 mg PO DAILY [facility] Last Admin: 07/06/18 09:36 Dose: 81 mg Clopidogrel Bisulfate (Plavix) 75 mg PO DAILY [facility] Last Admin: 07/06/18 09:36 Dose: 75 mg Dolutegravir Sodium (Tivicay) 50 mg PO DAILY [facility] Last Admin: 07/06/18 09:36 Dose: Not Given Enoxaparin Sodium (Lovenox) 80 mg SC Q12H [facility] Last Admin: 07/06/18 06:46 Dose: 80 mg Fluticasone Propionate (Flonase) 1 spr NS RQD [facility] Last Admin: 07/05/18 09:00 Dose: Not Given Home Med (Rilpivirine Hcl [Edurant]) 25 mg PO DAILY [facility] Sodium Chloride (Sodium Chloride 0.9%) 1,000 mls @ 60 mls/hr IV .[id number] [facility] Last Admin: 07/05/18 18:58 Dose: 60 mls/hr Results - Vital Signs Recent Vital Signs: Last Vital Signs Temp 98.9 F 07/06/18 08:26 Pulse 78 07/06/18 08:26 Resp 20 07/06/18 08:26 BP 164/97 H 07/06/18 08:26 Pulse Ox 95 07/06/18 08:26 - Labs Result Diagrams: 07/04/18 10:21 07/06/18 06:52 Labs: Laboratory Results - last 24 hr 07/06/18 07/06/18 07/06/18 04:32 04:32 06:52 Sodium 138 Potassium 5.2 Chloride 105 Carbon Dioxide 25 Anion Gap 13 BUN 24 H Creatinine 2.1 H Est GFR ( Amer) 30 Est GFR (Non-Af Amer) 25 Random Glucose 90 Calcium 9.6 Urine Color Straw Urine Clarity Clear Urine pH 7.0 Ur Specific [place] 1.015 Urine Protein Negative Urine Glucose (UA) 1+ Urine Ketones Negative Urine Blood Negative Urine Nitrate Negative Urine Bilirubin Negative Urine Urobilinogen Normal Ur Leukocyte Esterase Neg Urine WBC (Auto) 2 Urine RBC (Auto) < 1 Ur Squamous Epith Cells 2 Urine Opiates Screen Positive H Urine Methadone Screen Negative Ur Barbiturates Screen Negative Ur Phencyclidine Scrn Negative Ur Amphetamines Screen Negative U Benzodiazepines Scrn Positive U Oth Cocaine Metabols Positive H U Cannabinoids Screen Negative Complement C3 Complement C4 Hepatitis A IgM Ab Hep Bs Antigen Hep B Core IgM Ab Hepatitis C Antibody 07/06/18 07/06/18 06:52 06:57 Sodium Potassium Chloride Carbon Dioxide Anion Gap BUN Creatinine Est GFR ( Amer) Est GFR (Non-Af Amer) Random Glucose Calcium Urine Color Urine Clarity Urine pH Ur Specific [place] Urine Protein Urine Glucose (UA) Urine Ketones Urine Blood Urine Nitrate Urine Bilirubin Urine Urobilinogen Ur Leukocyte Esterase Urine WBC (Auto) Urine RBC (Auto) Ur Squamous Epith Cells Urine Opiates Screen Urine Methadone Screen Ur Barbiturates Screen Ur Phencyclidine Scrn Ur Amphetamines Screen U Benzodiazepines Scrn U Oth Cocaine Metabols U Cannabinoids Screen Complement C3 106.0 Complement C4 32.5 Hepatitis A IgM Ab Negative Hep Bs Antigen Negative Hep B Core IgM Ab Negative Hepatitis C Antibody Negative
[2018-07-06] MEDS: Sodium Chloride 0.9% 1,000 ML IV SCH ×2 (11:40→11:46)
[2018-07-06] MEDS: Acetylcysteine 20% Inhal Soln (4ml) PO SCH (12:46)
--- NOTE | 2018-07-06 14:11 | CP.PCM.PN ---
Subjective - Date & Time of Evaluation Date of Evaluation: 07/06/18 Time of Evaluation: 13:07 - Subjective Subjective: Cardiology Progress Note Morenita Ryan, PGY1 note for Dr. Ramirez Patient seen and examined at bedside. No acute events reported overnight. Patient is resting comfortably, no complaints offered at this time. Denies chest pain and SOB. Plan for cath today at [facility]. Objective - Vital Signs/Intake and Output Vital Signs (last 24 hours): Temp Pulse Resp BP Pulse Ox 98.9 F 78 20 164/97 H 95 07/06/18 08:26 07/06/18 08:26 07/06/18 08:26 07/06/18 08:26 07/06/18 08:26 Intake and Output: 07/06/18 07/06/18 06:59 18:59 Intake Total 720 Balance 720 - Medications Medications: Current Medications Acetylcysteine (Acetylcysteine 20%) 3 ml PO Q12H [facility] Stop: 07/08/18 01:01 Last Admin: 07/06/18 12:46 Dose: 3 ml Albuterol (Ventolin Hfa 90 Mcg/Actuation (8 G)) 2 puff IH RQ4 PRN PRN Reason: Cough Albuterol/Ipratropium (Duoneb 3 Mg/0.5 Mg (3 Ml) Ud) 3 ml IH RQID PRN PRN Reason: Wheezing Amlodipine Besylate (Norvasc) 5 mg PO DAILY [facility] Last Admin: 07/06/18 09:36 Dose: 5 mg Aspirin (Ecotrin) 81 mg PO DAILY [facility] Last Admin: 07/06/18 09:36 Dose: 81 mg Clopidogrel Bisulfate (Plavix) 75 mg PO DAILY [facility] Last Admin: 07/06/18 09:36 Dose: 75 mg Dolutegravir Sodium (Tivicay) 50 mg PO DAILY [facility] Last Admin: 07/06/18 09:36 Dose: Not Given Enoxaparin Sodium (Lovenox) 80 mg SC Q12H [facility] Last Admin: 07/06/18 06:46 Dose: 80 mg Fluticasone Propionate (Flonase) 1 spr NS RQD [facility] Last Admin: 07/05/18 09:00 Dose: Not Given Home Med (Rilpivirine Hcl [Edurant]) 25 mg PO DAILY [facility] Sodium Chloride (Sodium Chloride 0.9%) 1,000 mls @ 60 mls/hr IV .[id number] [facility] Last Admin: 07/06/18 11:40 Dose: 60 mls/hr Sodium Chloride (Sodium Chloride 0.9%) 1,000 mls @ 100 mls/hr IV .Q10H [facility] Stop: 07/07/18 11:31 Last Admin: 07/06/18 11:46 Dose: 100 mls/hr - Labs Labs: 07/04/18 10:21 07/06/18 06:52 PT 11.5 SECONDS (9.7-12.2) 07/04/18 10:21 INR 1.1 07/04/18 10:21 APTT 49 SECONDS (21-34) H D 07/05/18 07:43 - Constitutional Appears: No Acute Distress - Head Exam Head Exam: ATRAUMATIC, NORMAL INSPECTION - Eye Exam Eye Exam: EOMI, Normal appearance, PERRL Pupil Exam: NORMAL ACCOMODATION, PERRL - ENT Exam ENT Exam: Mucous Membranes Moist, Normal Exam - Neck Exam Neck Exam: Full ROM, Normal Inspection. absent: Lymphadenopathy - Respiratory Exam Respiratory Exam: Clear to Ausculation Bilateral, NORMAL BREATHING PATTERN - Cardiovascular Exam Cardiovascular Exam: REGULAR RHYTHM, +S1, +S2 - GI/Abdominal Exam GI & Abdominal Exam: Soft, Normal Bowel Sounds. absent: Tenderness - Rectal Exam Rectal Exam: NORMAL INSPECTION - Extremities Exam Extremities Exam: Full ROM, Normal Inspection. absent: Joint Swelling, Pedal Edema - Neurological Exam Neurological Exam: Alert, Awake, Oriented x3 - Skin Skin Exam: Normal Color, Warm Assessment and Plan - Assessment and Plan (Free Text) Assessment: This is a 53 year old female with PMH of HTN and HIV presenting to the hospital after developing chest pain from use of cocaine. Plan: Chest pain -s/p cocaine use -coronary vasospasm vs. myocardial ishcemia -received diagnostic cath on 07/05/18 showing stenosis of LAD -plan for therapeutic cath today at [facility] -continue norvasc, ASA and plavix Further recommendations per Dr. Ramirez
--- NOTE | 2018-07-06 14:31 | PROCN ---
DATE OF PROCEDURE: 07/05/2018 INDICATIONS: Cary Wright is a 53-year-old female who presented to [facility] with episode of chest pain one hour after cocaine use. She was noted to have some ST changes on the EKG and therefore subsequently ruled in for non-ST elevation [place] and was brought to the cath lab manager for further evaluation and treatment. PROCEDURES PERFORMED: Left heart catheterization with selective left and right coronary angiogram, left ventriculogram, 6-Stateless right radial arterial access, and wrist band for hemostasis. TECHNIQUES OF PROCEDURE: After obtaining informed consent, the patient was brought to the cardiac cath suite in post-absorptive and non-sedated state. The patient was prepped and draped in the usual sterile fashion and 2% lidocaine was used for infiltration of anesthesia. Using modified Seldinger technique, a 6-Stateless sheath was introduced into the right radial artery. Subsequently over a J-wire, and JR4 diagnostic catheters were used to engage the left and right coronary systems. Angiograms were obtained in different orthogonal views. Subsequently, pigtail catheter was advanced into the LV and LV gram was obtained in the AGUILA view. ANGIOGRAPHIC FINDINGS: Left main is a large-sized vessel, bifurcates into LAD and left circumflex coronary artery. Left circumflex runs in the AV groove and gives off a obtuse marginal branch, which has a mid 55% stenosis. LAD is a large-sized vessel with proximal 95% ruptured plaque, gives off two small diagonal branches. The right coronary artery codominant circulation, mid 40% stenosis, distal PDA patent, proximal PLV has a 75% stenosis. IMPRESSION: Severe proximal left anterior descending stenosis, moderate posterior left ventricular artery and obtuse marginal stenosis, normal ejection fraction 45% and mild anterior apical hypokinesis, mildly elevated end-diastolic pressure . RECOMMENDATIONS: The patient should be transferred to [place] tomorrow for staged PCI of the proximal LAD. Morris Ramirez MD
--- NOTE | 2018-07-07 00:02 | CP.PCM.PN ---
Objective - Vital Signs/Intake and Output Vital Signs (last 24 hours): Temp Pulse Resp BP Pulse Ox 98.9 F 78 20 164/97 H 95 07/06/18 08:26 07/06/18 08:26 07/06/18 08:26 07/06/18 08:26 07/06/18 08:26 - Medications Medications: Current Medications Acetylcysteine (Acetylcysteine 20%) 3 ml PO Q12H [facility] Stop: 07/08/18 01:01 Last Admin: 07/06/18 12:46 Dose: 3 ml Albuterol (Ventolin Hfa 90 Mcg/Actuation (8 G)) 2 puff IH RQ4 PRN PRN Reason: Cough Albuterol/Ipratropium (Duoneb 3 Mg/0.5 Mg (3 Ml) Ud) 3 ml IH RQID PRN PRN Reason: Wheezing Amlodipine Besylate (Norvasc) 5 mg PO DAILY [facility] Last Admin: 07/06/18 09:36 Dose: 5 mg Aspirin (Ecotrin) 81 mg PO DAILY [facility] Last Admin: 07/06/18 09:36 Dose: 81 mg Clopidogrel Bisulfate (Plavix) 75 mg PO DAILY [facility] Last Admin: 07/06/18 09:36 Dose: 75 mg Dolutegravir Sodium (Tivicay) 50 mg PO DAILY [facility] Last Admin: 07/06/18 09:36 Dose: Not Given Enoxaparin Sodium (Lovenox) 80 mg SC Q12H [facility] Last Admin: 07/06/18 06:46 Dose: 80 mg Fluticasone Propionate (Flonase) 1 spr NS RQD [facility] Last Admin: 07/05/18 09:00 Dose: Not Given Home Med (Rilpivirine Hcl [Edurant]) 25 mg PO DAILY [facility] Sodium Chloride (Sodium Chloride 0.9%) 1,000 mls @ 100 mls/hr IV .Q10H [facility] Stop: 07/07/18 11:31 Last Admin: 07/06/18 11:46 Dose: 100 mls/hr - Labs Labs: 07/04/18 10:21 07/06/18 06:52 PT 11.5 SECONDS (9.7-12.2) 07/04/18 10:21 INR 1.1 07/04/18 10:21 APTT 49 SECONDS (21-34) H D 07/05/18 07:43
--- NOTE | 2018-07-07 05:38 | CON ---
DATE: 07/06/2018 RENAL CONSULTATION LOCATION: The patient is located in room 669, bed A. REQUESTED BY: Andreas Ignacio MD REASON FOR FOLLOWUP: Chronic kidney disease, for further evaluation. HISTORY OF PRESENT ILLNESS: Mrs. Wright is a 53-year-old elderly female with past medical history significant for hypertension and HIV positive, brought to the ER by ALS for evaluation of chest pain which began after she was snorting cocaine. The patient is ambulating today, not in any distress. She is status post cardiac cath yesterday and found to have a LAD lesion and scheduled for possible stenting or angioplasty in [facility]. The patient denies any shortness of breath. Denies any nausea, vomiting or diarrhea. Denies any fever or cough. No edema of the legs. No urinary symptoms. PAST MEDICAL HISTORY: Significant for hypertension, HIV positive, chronic kidney disease. PAST SURGICAL HISTORY: History of gallbladder surgery. ALLERGIES: ALLERGIC TO CODEINE. SOCIAL HISTORY: The patient is an ex-smoker, quit about a year ago. cocaine abuse. Denies any alcohol abuse. PERSONAL HISTORY: She is single and she has one child. FAMILY HISTORY: Not significant. Father . Mother is alive. CURRENT MEDICATIONS: Include as follows: DuoNeb inhaler 3 mL four times a day, aspirin 81 mg daily, Flonase one spray nostril daily, Lovenox 80 mg subcutaneously every 12 hours, Norvasc 5 mg p.o. daily, Plavix 75 mg daily, normal saline at 100 mL per hour, Tivicay 50 mg p.o. daily, and albuterol inhaler. PHYSICAL EXAMINATION: VITAL SIGNS: Blood pressure this morning 164/97, pulse 78, respirations 20, temperature 98.9, saturations 95%. Height 5 feet 2 inches, and weight is 177 pounds. GENERAL: Mrs. Wright is a 53-year-old female, moderately built, moderately nourished, not in acute distress. HEENT: Pupils are normal and reactive to light and accommodation. Conjunctivae pink. Sclerae are anicteric. Tongue is moist. Trachea is midline. LUNGS: Symmetric on both sides. Bilateral breath sounds present. Clear to auscultation. CARDIOVASCULAR SYSTEM: [place] at the fifth intercostal space, midclavicular line. S1 and S2 audible. No murmur or gallop. ABDOMEN: Normal in appearance, soft, tympanitic. No guarding. No rigidity. No hepatosplenomegaly. CENTRAL NERVOUS SYSTEM: The patient is alert, awake, and oriented x3. Nonfocal neuro examination. Cranial nerves II-XII grossly intact. Sensory and motor system is within normal limits. EXTREMITIES: No cyanosis, no clubbing, no edema. LABORATORY DATA: Include as follows as of 07/04/2018: WBC 5.3, hemoglobin 11.3, hematocrit is 36.2, MCV 55.4, platelets 263. PT 11.5, PTT 30. Sodium 143, potassium 4.7, chloride 102, CO2 of 22, BUN 19, creatinine 2.1, glucose 121, calcium 10.6. Total bili 0.8, AST 28, ALT 17, alkaline phosphatase 103. Troponins are 0.08, 2.6, and 5.9 and the fourth one is 6.82. Total protein is 10, albumin 4.5, globulin 5.5. Beta hCG is 2.39, negative. TSH is 5.31. Other laboratory data as of 07/06/2018: Sodium 138, potassium 5.2, chloride 105, CO2 of 25, BUN 24, creatinine 2.1, glucose 90, calcium 9.6. Urine: Straw color, clear, pH of 7, specific gravity 1.015, glucose negative, ketones 1+, blood negative, nitrites negative, bilirubin negative, urobilinogen negative, leukocyte esterase negative, wbc 2, rbc less than 1, and protein is 1+. Urine drug screen positive for opiates and also positive for cocaine. C3 is 106 and C4 is 32.5. Hepatitis C antibody IgM is negative and hepatitis B antigen is negative. Hepatitis B core antibody IgM is negative. Hepatitis C antibody is negative. Renal ultrasound as of 07/05/2018: Right kidney measures 10 x 4.2 x 4.7 cm, lower pole cyst measuring 0.7 x 0.7 x 0.9. Normal size, contour, and echogenicity. No stone. No solid masses or hydronephrosis. Left kidney measures 9.8 x 4.6 x 4.5. Nonspecific echogenicity and the midpole cortex measuring 1.6 x 0.7 x 1.1 cm. Impression: A 1.6 cm echogenic area in the left renal midpole cortex with increased transmission. 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 Cross sectional image can be obtained for further characterization on a nonemergent basis for renal or pole cyst. ASSESSMENT AND PLAN: In summary, Mrs. Wright is a 53-year-old female with a history of hypertension, human immunodeficiency virus positive, chronic kidney disease with a baseline creatinine about 1.3 on 03/19/2017, 1.7 on 01/04/2017, and on 05/27/2017 creatinine of 1.7 which is the previous creatinine, almost more than a year ago. 1. Chronic kidney disease stage 3, most likely secondary to hypertension and nephrosclerosis. Cannot rule out chronic glomerulonephritis such as focal segmental glomerulosclerosis. 2. Human immunodeficiency virus positive. 3. Drug abuse with opiates and cocaine. 4. [id number] myocardial infarction secondary to cocaine abuse, status post cardiac catheterization yesterday, diagnostic. Found to have left anterior descending lesion and scheduled for possible percutaneous transluminal coronary angioplasty of the left anterior descending artery. The patient will have mild risk for contrast-induced nephropathy. We will continue intravenous fluids normal saline at 100 mL per hour and also Mucomyst 600 mg orally twice a day. The patient was explained the risks and benefits. We will follow up with you. Thank you for allowing me to participate in your patient's care. Repeat basic metabolic panel in the morning. Danika Richardson MD
[2018-07-07] MEDS: Enoxaparin 80 mg Syringe SC SCH (06:31)
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
[2018-07-07 07:36] LABS: CALCIUM 9.7 mg/dl (8.6-10.4)
[2018-07-07 08:32] VITALS: O2SAT 100
[2018-07-07] MEDS: Sodium Chloride 0.9% 1,000 ML IV SCH ×2 (10:54→10:56)
--- NOTE | 2018-07-07 12:35 | CP.PCM.PN ---
Subjective - Date & Time of Evaluation Date of Evaluation: 07/07/18 Time of Evaluation: 12:35 - Subjective Subjective: PT CLEARED FOR D/C TODAY. SHE MUST WAIT TO BE SEEN BY DR. BUCIO PRIOR TO GOING HOME; D/C NURSE AWARE. RX LEFT FOR THE PT. NO FURTHER ORDERS. -FOLLOW UP WITH DR. ESPANA OR YOUR PRIMARY DOCTOR IN THE OFFICE WITHIN 5-7 DAYS--CALL FOR APPT TIME. -FOLLOW UP WITH DR. BUCIO (CARDIOLOGY) IN THE OFFICE WITHIN 14-21 DAYS--CALL FOR APPT TIME. -CONTINUE HOME MEDICATIONS USUAL. -ASPIRIN AND PLAVIX HAVE BEEN ADDED TO YOUR DAILY MEDICATIONS (PRESCRIPTIONS GIVEN TO YOU TODAY) PER DR. BUCIO'S RECOMMENDATIONS. TAKE THEM BOTH ONCE A DAY. -STOP USING COCAINE, THIS INCREASES YOUR CHANCE OF HEART ATTACK AND SUDDEN CARDIAC . -FOR FURTHER QUESTIONS, CONTACT DR. ESPANA'S OFFICE. Objective - Vital Signs/Intake and Output Vital Signs (last 24 hours): Temp Pulse Resp BP Pulse Ox 98.2 F 76 20 127/74 100 07/07/18 08:30 07/07/18 08:30 07/07/18 08:30 07/07/18 08:30 07/07/18 08:30 - Medications Medications: Current Medications Acetylcysteine (Acetylcysteine 20%) 3 ml PO Q12H [facility] Stop: 07/08/18 01:01 Last Admin: 07/06/18 12:46 Dose: 3 ml Albuterol (Ventolin Hfa 90 Mcg/Actuation (8 G)) 2 puff IH RQ4 PRN PRN Reason: Cough Albuterol/Ipratropium (Duoneb 3 Mg/0.5 Mg (3 Ml) Ud) 3 ml IH RQID PRN PRN Reason: Wheezing Amlodipine Besylate (Norvasc) 5 mg PO DAILY [facility] Last Admin: 07/07/18 09:28 Dose: 5 mg Aspirin (Ecotrin) 81 mg PO DAILY [facility] Last Admin: 07/07/18 09:28 Dose: 81 mg Clopidogrel Bisulfate (Plavix) 75 mg PO DAILY [facility] Last Admin: 07/07/18 09:27 Dose: 75 mg Dolutegravir Sodium (Tivicay) 50 mg PO DAILY [facility] Last Admin: 07/07/18 10:53 Dose: Not Given Enoxaparin Sodium (Lovenox) 80 mg SC Q12H [facility] Last Admin: 07/07/18 06:31 Dose: 80 mg Fluticasone Propionate (Flonase) 1 spr NS RQD [facility] Last Admin: 07/05/18 09:00 Dose: Not Given Home Med (Rilpivirine Hcl [Edurant]) 25 mg PO DAILY [facility] - Labs Labs: 07/04/18 10:21 07/07/18 07:02 PT 11.5 SECONDS (9.7-12.2) 07/04/18 10:21 INR 1.1 07/04/18 10:21 APTT 49 SECONDS (21-34) H D 07/05/18 07:43
[2018-07-07 15:58] VITALS: BP 146/82; PULSE 92; TEMP 98.5
[2018-07-07] MEDS: Acetylcysteine 20% Inhal Soln (4ml) PO SCH (17:11)
--- NOTE | 2018-07-07 18:05 | CP.PCM.PN ---
Subjective - Date & Time of Evaluation Date of Evaluation: 07/07/18 Time of Evaluation: 18:05 - Subjective Subjective: pt is feeling better, no cp, no sob, s/p PTCA of LAD no edema of legs Objective - Vital Signs/Intake and Output Vital Signs (last 24 hours): Temp Pulse Resp BP Pulse Ox 98.5 F 92 H 20 146/82 100 07/07/18 15:00 07/07/18 15:00 07/07/18 15:00 07/07/18 15:00 07/07/18 15:00 - Medications Medications: Current Medications Acetylcysteine (Acetylcysteine 20%) 3 ml PO Q12H [facility] Stop: 07/08/18 01:01 Last Admin: 07/07/18 17:11 Dose: 3 ml Albuterol (Ventolin Hfa 90 Mcg/Actuation (8 G)) 2 puff IH RQ4 PRN PRN Reason: Cough Albuterol/Ipratropium (Duoneb 3 Mg/0.5 Mg (3 Ml) Ud) 3 ml IH RQID PRN PRN Reason: Wheezing Amlodipine Besylate (Norvasc) 5 mg PO DAILY [facility] Last Admin: 07/07/18 09:28 Dose: 5 mg Aspirin (Ecotrin) 81 mg PO DAILY [facility] Last Admin: 07/07/18 09:28 Dose: 81 mg Clopidogrel Bisulfate (Plavix) 75 mg PO DAILY [facility] Last Admin: 07/07/18 09:27 Dose: 75 mg Dolutegravir Sodium (Tivicay) 50 mg PO DAILY [facility] Last Admin: 07/07/18 10:53 Dose: Not Given Enoxaparin Sodium (Lovenox) 80 mg SC Q12H [facility] Last Admin: 07/07/18 06:31 Dose: 80 mg Fluticasone Propionate (Flonase) 1 spr NS RQD [facility] Last Admin: 07/05/18 09:00 Dose: Not Given Home Med (Rilpivirine Hcl [Edurant]) 25 mg PO DAILY [facility] - Labs Labs: 07/04/18 10:21 07/07/18 07:02 PT 11.5 SECONDS (9.7-12.2) 07/04/18 10:21 INR 1.1 07/04/18 10:21 APTT 49 SECONDS (21-34) H D 07/05/18 07:43 - Constitutional Appears: Well, Non-toxic, No Acute Distress - Head Exam Head Exam: ATRAUMATIC, NORMAL INSPECTION, NORMOCEPHALIC - Eye Exam Eye Exam: EOMI, Normal appearance Pupil Exam: NORMAL ACCOMODATION, PERRL - ENT Exam ENT Exam: Mucous Membranes Moist, Normal Exam - Neck Exam Neck Exam: Full ROM, Normal Inspection - Respiratory Exam Respiratory Exam: Clear to Ausculation Bilateral, NORMAL BREATHING PATTERN - Cardiovascular Exam Cardiovascular Exam: REGULAR RHYTHM, +S1, +S2 - GI/Abdominal Exam GI & Abdominal Exam: Soft, Normal Bowel Sounds Additional comments: non tender, no hepatospleenomegaly, no abd. bruit - Back Exam Back Exam: NORMAL INSPECTION - Neurological Exam Neurological Exam: Alert, Awake, CN II-XII Intact, Normal Gait, Oriented x3, Reflexes Normal - Psychiatric Exam Psychiatric exam: Anxious - Skin Skin Exam: Normal Color Assessment and Plan - Assessment and Plan (Free Text) Plan: 53 yo AA female with htn, HIV+, coacaine abuse with chest pain nad elevtaed troponins, s/p cardiac cath and s/p PTCA of LAD in [facility] with increased bun/cr on admission, base line s.cr 1.6 about 1 yr ago 1. IVIS on ckd 2. NSTEMI sec to cocaine abuse 3. HTN 4. HIV+ renal function is improving, all f/u as an out pt the seology is wnl c/w current meds
--- NOTE | 2018-07-07 20:54 | CP.PCM.DIS ---
Provider - Provider Date of Admission: 07/06/18 07:47 Attending physician: Andreas Ignacio MD Hospital Course - Lab Results Lab Results: Most Recent Lab Values WBC 5.3 K/uL (4.8-10.8) 07/04/18 10:21 RBC 4.79 Mil/uL (3.80-5.20) 07/04/18 10:21 Hgb 11.8 g/dL (11.0-16.0) D 07/04/18 10:21 Hct 36.2 % (34.0-47.0) 07/04/18 10:21 MCV 75.4 fL (81.0-99.0) L D 07/04/18 10:21 MCH 24.7 pg (27.0-31.0) L 07/04/18 10:21 MCHC 32.8 g/dL (33.0-37.0) L 07/04/18 10:21 RDW 16.1 % (11.5-14.5) H 07/04/18 10:21 Plt Count 263 K/uL (130-400) 07/04/18 10:21 MPV 7.9 fL (7.2-11.7) 07/04/18 10:21 Neut % (Auto) 63.2 % (50.0-75.0) 07/04/18 10:21 Lymph % (Auto) 28.6 % (20.0-40.0) 07/04/18 10:21 [place] % (Auto) 7.2 % (0.0-10.0) 07/04/18 10:21 Eos % (Auto) 0.7 % (0.0-4.0) 07/04/18 10:21 Baso % (Auto) 0.3 % (0.0-2.0) 07/04/18 10:21 Neut # (Auto) 3.4 K/uL (1.8-7.0) 07/04/18 10:21 Lymph # (Auto) 1.5 K/uL (1.0-4.3) 07/04/18 10:21 [place] # (Auto) 0.4 K/uL (0.0-0.8) 07/04/18 10:21 Eos # (Auto) 0.0 K/uL (0.0-0.7) 07/04/18 10:21 Baso # (Auto) 0.0 K/uL (0.0-0.2) 07/04/18 10:21 PT 11.5 SECONDS (9.7-12.2) 07/04/18 10:21 INR 1.1 07/04/18 10:21 APTT 49 SECONDS (21-34) H D 07/05/18 07:43 Sodium 137 mmol/L (132-148) 07/07/18 07:02 Potassium 4.9 mmol/L (3.6-5.2) 07/07/18 07:02 Chloride 103 mmol/L (98-107) 07/07/18 07:02 Carbon Dioxide 26 mmol/L (22-30) 07/07/18 07:02 Anion Gap 13 (10-20) 07/07/18 07:02 BUN 23 mg/dL (7-17) H 07/07/18 07:02 Creatinine 1.9 mg/dL (0.7-1.2) H 07/07/18 07:02 Est GFR ( Amer) 33 07/07/18 07:02 Est GFR (Non-Af Amer) 28 07/07/18 07:02 Random Glucose 110 mg/dL (65-105) H 07/07/18 07:02 Calcium 9.7 mg/dl (8.6-10.4) 07/07/18 07:02 Total Bilirubin 0.8 mg/dL (0.2-1.3) 07/04/18 10:21 AST 28 U/L (14-36) 07/04/18 10:21 ALT 17 U/L (9-52) 07/04/18 10:21 Alkaline Phosphatase 103 U/L (38-126) 07/04/18 10:21 Total Creatine Kinase 274 U/L (30-135) H 07/05/18 04:22 CK-MB (Mass) 12.9 ng/mL (0.0-3.38) H 07/05/18 04:22 Troponin I 6.8200 ng/mL (0.00-0.120) H* 07/05/18 04:22 Total Protein 10.0 g/dL (6.3-8.3) H 07/04/18 10:21 Albumin 4.5 g/dL (3.5-5.0) 07/04/18 10:21 Globulin 5.5 gm/dL (2.2-3.9) H 07/04/18 10:21 Albumin/Globulin Ratio 0.8 (1.0-2.1) L 07/04/18 10:21 TSH 3rd Generation 5.31 mIU/L (0.46-4.68) H 07/04/18 10:21 Beta HCG, Quant < 2.39 mIU/ML 07/04/18 10:21 PTH w/Ion &Tot Calcium 39 pg/mL (14-64) 07/06/18 06:52 Urine Color Straw (YELLOW) 07/06/18 04:32 Urine Clarity Clear (Clear) 07/06/18 04:32 Urine pH 7.0 (5.0-8.0) 07/06/18 04:32 Ur Specific [place] 1.015 (1.003-1.030) 07/06/18 04:32 Urine Protein Negative mg/dL (NEGATIVE) 07/06/18 04:32 Urine Glucose (UA) 1+ mg/dL (Normal) 07/06/18 04:32 Urine Ketones Negative mg/dL (NEGATIVE) 07/06/18 04:32 Urine Blood Negative (NEGATIVE) 07/06/18 04:32 Urine Nitrate Negative (NEGATIVE) 07/06/18 04:32 Urine Bilirubin Negative (NEGATIVE) 07/06/18 04:32 Urine Urobilinogen Normal mg/dL (0.2-1.0) 07/06/18 04:32 Ur Leukocyte Esterase Neg Sushant/uL (Negative) 07/06/18 04:32 Urine WBC (Auto) 2 /hpf (0-5) 07/06/18 04:32 Urine RBC (Auto) < 1 /hpf (0-3) 07/06/18 04:32 Ur Squamous Epith Cells 2 /hpf (0-5) 07/06/18 04:32 Urine Opiates Screen Positive (NEGATIVE) H 07/06/18 04:32 Urine Methadone Screen Negative (NEGATIVE) 07/06/18 04:32 Ur Barbiturates Screen Negative (NEGATIVE) 07/06/18 04:32 Ur Phencyclidine Scrn Negative (NEGATIVE) 07/06/18 04:32 Ur Amphetamines Screen Negative (NEGATIVE) 07/06/18 04:32 U Benzodiazepines Scrn Positive (NEGATIVE) 07/06/18 04:32 U Oth Cocaine Metabols Positive (NEGATIVE) H 07/06/18 04:32 U Cannabinoids Screen Negative (NEGATIVE) 07/06/18 04:32 TOYIN Screen Negative (Negative) 07/06/18 06:52 Complement C3 106.0 mg/dL (88.0-165.0) 07/06/18 06:57 Complement C4 32.5 mg/dL (14.0-44.0) 07/06/18 06:57 Hepatitis A IgM Ab Negative (NEGATIVE) 07/06/18 06:52 Hep Bs Antigen Negative (NEGATIVE) 07/06/18 06:52 Hep B Core IgM Ab Negative (NEGATIVE) 07/06/18 06:52 Hepatitis C Antibody Negative (NEGATIVE) 07/06/18 06:52 Discharge Exam - Head Exam Head Exam: ATRAUMATIC, NORMAL INSPECTION Discharge Plan - Discharge Medications Prescriptions: Aspirin [Ecotrin] 81 mg PO DAILY #30 tabec Clopidogrel [Plavix] 75 mg PO DAILY #30 tab - Follow Up Plan Condition: FAIR Disposition: HOME/ ROUTINE Instructions: Cardiac Catheterization (DC), Coronary Angioplasty (DC), Coronary Stenting (DC), Chest Pain (DC), Aspirin, Atorvastatin, Carvedilol, Clopidogrel Additional Instructions: -FOLLOW UP WITH DR. IGNACIO OR YOUR PRIMARY DOCTOR IN THE OFFICE WITHIN 5-7 DAYS--CALL FOR APPT TIME. -FOLLOW UP WITH DR. RAMIREZ (CARDIOLOGY) IN THE OFFICE WITHIN 14-21 DAYS--CALL FOR APPT TIME. -CONTINUE HOME MEDICATIONS USUAL. -ASPIRIN AND PLAVIX HAVE BEEN ADDED TO YOUR DAILY MEDICATIONS (PRESCRIPTIONS GIVEN TO YOU TODAY) PER DR. RAMIREZ'S RECOMMENDATIONS. TAKE THEM BOTH ONCE A DAY. -STOP USING COCAINE, THIS INCREASES YOUR CHANCE OF HEART ATTACK AND SUDDEN CARDIAC . -FOR FURTHER QUESTIONS, CONTACT DR. IGNACIO'S OFFICE. Referrals: Morris Ramirez MD [Staff Provider] - Danika Richardson MD [Staff Provider] - Andreas Ignacio MD [Staff Provider] -
--- NOTE | 2018-07-08 04:19 | PN ---
DATE: 07/07/2018 SUBJECTIVE: Cary Wright is going for cardiac cath today. The patient was seen on 07/06/2018. PHYSICAL EXAMINATION: VITAL SIGNS: BP 124/77, pulse 93, respiratory rate 20, and temperature 98.2. LUNGS: Clear. CVS: S1 and S2 regular. ABDOMEN: Soft. ASSESSMENT: 1. Cocaine-induced chest pain with myocardial infarction. 2. Acute renal failure due to prerenal azotemia. 3. Hypertension. 4. Acquired immunodeficiency syndrome. PLAN: Cardiac cath. The patient is going to [facility]. Andreas Ignacio MD
--- NOTE | 2018-07-10 07:33 | DS ---
ADMISSION DIAGNOSIS: Chest pain. DISCHARGE DIAGNOSES: 1. Coronary artery disease, cocaine induced, myocardial infarction. 2. Acute prerenal azotemia. 3. Hypertension. 4. Acquired immunodeficiency syndrome. 5. Substance abuse. HISTORY OF PRESENT ILLNESS: This is a 53-year-old female with history of cocaine abuse who developed chest pain. DE was ruled in by positive cardiac enzymes x3. The patient was sutured with angioplasty, blood pressure medication, blood control. She was counseled to avoid any substance abuse, move forward in future. Urine drug screen was positive for opiates, benzodiazepines and cocaine. The patient is feeling better. She is for discharge. PHYSICAL EXAMINATION: VITAL SIGNS: Blood pressure 146/82, pulse 92, respiratory rate 20, temperature 96.5. LUNGS: Clear. CVS: S1, S2 regular. ABDOMEN: Soft. DISCHARGE DIAGNOSES: 1. Coronary artery disease, acute myocardial infarction. 2. Hypertension. 3. Acute on chronic kidney disease. PLAN: Discharge patient. Andreas Ignacio MD
== END 2018-07-07 20:10 | disposition home or self-care (01) | DRG 550 ==
LOC: C.ER 09:50 → C.9E 11:43 → C.6T 14:25 → C.9E 14:45 → C.6T 15:00 → OBSVTOIN 07-06 07:47 → C.6T 07-07 13:20
PROVIDERS: ADMIT Internal Medicine; ATTEND Internal Medicine
PROC: 4A023N7 Measurement of Cardiac Sampling and Pressure, Left Heart, Percutaneous Approach (ICD-10-PCS; principal; 2018-07-05)
PROC: B2161ZZ Fluoroscopy of Right and Left Heart using Low Osmolar Contrast (ICD-10-PCS; 2018-07-05)
PROC: B2111ZZ Fluoroscopy of Multiple Coronary Arteries using Low Osmolar Contrast (ICD-10-PCS; 2018-07-05)
PROC: 027034Z Dilation of Coronary Artery, One Artery with Drug-eluting Intraluminal Device, Percutaneous Approach (ICD-10-PCS; 2018-07-06)
DX: I21.A1 Myocardial infarction type 2 (principal); N17.9 Acute kidney failure, unspecified; B20 Human immunodeficiency virus [HIV] disease; F14.10 Cocaine abuse, uncomplicated; N18.9 Chronic kidney disease, unspecified; F11.10 Opioid abuse, uncomplicated; I25.10 Atherosclerotic heart disease of native coronary artery without angina pectoris; I12.9 Hypertensive chronic kidney disease with stage 1 through stage 4 chronic kidney disease, or unspecified chronic kidney disease; F19.10 Other psychoactive substance abuse, uncomplicated